=== PATIENT | female | born 1995 | race African-American/Black ===

== ENCOUNTER 2016-10-20 15:59 | Emergency (ER) | payer SELFPAY ==
[~2016-10-20] VITALS: Ht 167.6 cm; Wt 77.1 kg
[2016-10-20 16:45] LABS: BASO # 0.1 x10^3/uL (0.0-0.2); BASO % 0 % (0-3); EOS % 1 % (0-3); HEMATOCRIT 38.7 % (36.0-47.0); HEMOGLOBIN 12.4 g/dL (12.0-15.5); LYMPH # 1.8 x10^3/uL (1.0-4.8); LYMPH % 16 % (24-48); MEAN CORPUSCULAR HEMOGLOBIN 27 pg (25-35); MEAN CORPUSCULAR HGB CONC 32 g/dL (31-37); MEAN CORPUSCULAR VOLUME 83 fL (79-100); MONO % 8 % (0-9); NEUT % 75 % (31-73); PLATELET COUNT 201 x10^3/uL (140-400); RED BLOOD COUNT 4.69 x10^6/uL (3.50-5.40); RED CELL DISTRIBUTION WIDTH 14.5 % (11.5-14.5); WHITE BLOOD COUNT 11.5 x10^3/uL (4.0-11.0)
[2016-10-20] MEDS ORDERED: IV NORMAL SALINE 1000ML BAG 1,000 ML IV ONE (16:45)
[2016-10-20] MEDS ORDERED: DIPHENHYDRAMINE 50 MG/ML VIAL. IVP ONE (16:45)
[2016-10-20] MEDS ORDERED: METOCLOPRAMIDE HCL 10 MG/2 ML VIAL. IV ONE (16:45)
[2016-10-20 16:48] LABS: BILIRUBIN,URINE NEGATIVE (NEG); GLUCOSE,URINE NEGATIVE (NEG); NITRITE,URINE NEGATIVE (NEG); PH,URINE 7.5; PROTEIN,URINE NEGATIVE (NEG-TRACE)
--- NOTE | 2016-10-20 16:49 | PHYS DOC ---
Past Medical History Past Medical History: No Pertinent History Past Surgical History: No Surgical History Alcohol Use: None Drug Use: None Adult General Chief Complaint Chief Complaint: ABDOMINAL PAIN HPI HPI 21-year-old female presenting to the emergency department with pain on the right side. She describes the pain in her right groin that radiates back to the right flank. It is a sharp shooting pain with associated foul-smelling urine. It is moderate in nature intermittent and without hematuria. She has nausea without vomiting. She denies fevers or chills. ROS neg for chest pain, vomiting, fevers chills. Pos for h/a without neck stiffness fevers or meningismus. All other review of systems is negative unless otherwise noted in history of present illness. Review of Systems Review of Systems SEE ABOVE. Current Medications Current Medications Current Medications Medications (Trade) Dose Ordered Sig/Iblly Start Time Stop Time Status Last Admin Dose Admin Diphenhydramine HCl (Benadryl) 50 mg 1X ONCE 10/20/16 16:45 10/20/16 16:46 DC 10/20/16 16:47 50 MG Fentanyl Citrate (Fentanyl 2ml Vial) 25 mcg 1X PRN PRN 10/20/16 17:30 Info (Do NOT chart on this entry -- for MONITORING) 1 each PRN DAILY PRN 10/20/16 17:45 10/22/16 17:44 Iohexol (Omnipaque 300 Mg/ml) 75 ml 1X ONCE 10/20/16 17:45 10/20/16 17:46 DC 10/20/16 18:18 75 ML Metoclopramide HCl (Reglan) 20 mg 1X ONCE 10/20/16 16:45 10/20/16 16:46 DC 10/20/16 16:47 20 MG Sodium Chloride (Iv Sodium Chloride 0.9% 1000ml Bag) 1,000 ml @ 1,000 mls/hr 1X ONCE 10/20/16 16:45 10/20/16 17:44 DC 10/20/16 16:46 1,000 MLS/HR Allergies Allergies Allergies Coded Allergies Type Severity Reaction Last Updated Verified No Known Drug Allergies 06/28/13 No Physical Exam Physical Exam Constitutional: Well developed, well nourished, no acute distress, non-toxic appearance. HENT: Normocephalic, atraumatic, bilateral external ears normal, oropharynx moist, no oral exudates, nose normal. [] Eyes: PERRLA, EOMI, conjunctiva normal, no discharge. Neck: Normal range of motion, no tenderness, supple, no stridor. [] Cardiovascular: Heart rate regular rhythm, no murmur Lungs & Thorax: Bilateral breath sounds clear to auscultation Abdomen: Soft nontender abdomen without rebound tenderness or guarding present. Negative McBurneys point. Negative Moore sign. No ecchymosis present. Skin: Warm, dry, no erythema, no rash. Back: No tenderness, right cva tenderness. no left cva tenderness Extremities: No tenderness, no cyanosis, no clubbing, ROM intact, no edema. Neurologic: Alert and oriented X 3, normal motor function, normal sensory function, no focal deficits noted. Psychologic: Affect normal, judgement normal, mood normal. [] Current Patient Data Vital Signs Vital Signs Date Time Temp Pulse Resp B/P Pulse Ox O2 Delivery O2 Flow Rate FiO2 10/20/16 17:50 99.4 99.4 10/20/16 17:41 72 91/55 100 Room Air 10/20/16 16:17 20 Lab Values Laboratory Tests Test 10/20/16 15:43 10/20/16 16:21 10/20/16 16:33 POC Urine HCG, Qualitative Hcg negative (Negative) Urine Collection Type Unknown Urine Color Yellow Urine Clarity Clear Urine pH 7.5 Urine Specific Richardson <=1.005 Urine Protein Negativemg/dL (NEG-TRACE) Urine Glucose (UA) Negativemg/dL (NEG) Urine Ketones (Stick) Negativemg/dL (NEG) Urine Blood Trace (NEG) Urine Nitrite Negative (NEG) Urine Bilirubin Negative (NEG) Urine Urobilinogen Dipstick 1.0mg/dL (0.2 mg/dL) Urine Leukocyte Esterase Moderate (NEG) Urine RBC 0/HPF (0-2) Urine WBC 20-40/HPF (0-4) Urine Squamous Epithelial Cells Few/LPF Urine Bacteria 0/HPF (0-FEW) White Blood Count 11.5x10^3/uL (4.0-11.0) H Red Blood Count 4.69x10^6/uL (3.50-5.40) Hemoglobin 12.4g/dL (12.0-15.5) Hematocrit 38.7% (36.0-47.0) Mean Corpuscular Volume 83fL (79-100) Mean Corpuscular Hemoglobin 27pg (25-35) Mean Corpuscular Hemoglobin Concent 32g/dL (31-37) Red Cell Distribution Width 14.5% (11.5-14.5) Platelet Count 201x10^3/uL (140-400) Neutrophils (%) (Auto) 75% (31-73) H Lymphocytes (%) (Auto) 16% (24-48) L Monocytes (%) (Auto) 8% (0-9) Eosinophils (%) (Auto) 1% (0-3) Basophils (%) (Auto) 0% (0-3) Neutrophils # (Auto) 8.6x10^3uL (1.8-7.7) H Lymphocytes # (Auto) 1.8x10^3/uL (1.0-4.8) Monocytes # (Auto) 0.9x10^3/uL (0.0-1.1) Eosinophils # (Auto) 0.1x10^3/uL (0.0-0.7) Basophils # (Auto) 0.1x10^3/uL (0.0-0.2) Sodium Level 138mmol/L (136-145) Potassium Level 3.5mmol/L (3.5-5.1) Chloride Level 102mmol/L (98-107) Carbon Dioxide Level 27mmol/L (21-32) Anion Gap 9 (6-14) Blood Urea Nitrogen 6mg/dL (7-20) L Creatinine 0.9mg/dL (0.6-1.0) Estimated GFR (Cockcroft-Gault) 93.9 BUN/Creatinine Ratio 7 (6-20) Glucose Level 88mg/dL (70-99) Calcium Level 8.8mg/dL (8.5-10.1) Total Bilirubin 0.8mg/dL (0.2-1.0) Aspartate Amino Transferase (AST) 14U/L (15-37) L Alanine Aminotransferase (ALT) 15U/L (14-59) Alkaline Phosphatase 91U/L (46-116) Total Protein 7.4g/dL (6.4-8.2) Albumin 3.4g/dL (3.4-5.0) Albumin/Globulin Ratio 0.9 (1.0-1.7) L Lipase 83U/L (73-393) Laboratory Tests 10/20/16 16:33 Laboratory Tests 10/20/16 16:33 EKG EKG [] Radiology/Procedures Radiology/Procedures [] Course & Med Decision Making Course & Med Decision Making Pertinent Labs and Imaging studies reviewed. (See chart for details) 21 y/o F with R sided flank pain with nausea and headache. vital signs afebrile , mild tachycardia present. Pertinent physical exam findings nontender appendix. Mild CVA tenderness present. access obtained. Blood work obtained. Urinalysis obtained. IV fluids Reglan and Benadryl administered for nausea and pain control. On reevaluation, the patient's symptomatology had improved. She was feeling better. test negative. CT of the abdomen pelvis not suggestive of appendicitis. The patient's urinalysis mildly suggestive of urinary tract infection. Bactrim provided. The patient was in discharged home to follow up with PCP over the next 2-3 days. [id number] discharge instructions and return precautions given. Patient comfortable with plan. Dragon Disclaimer Dragon Disclaimer This electronic medical record was generated, in whole or in part, using a voice recognition dictation system. Departure Departure Impression: Primary Impression: Right flank pain Additional Impression: Headache Disposition: 01 HOME, SELF-CARE Condition: STABLE Referrals: NO PCP (PCP) EDGAR ALMENDAREZ MD Patient Instructions: Flank Pain Additional Instructions: Thank you for allowing us to participate in your care today. Followup with your primary care physician in 3 days if your symptoms do not improve. If you do not have a primary care provider you can ask for a list of our primary care providers. Return to the emergency department you have any new or concerning findings. This should be evaluated by the primary care physician and any necessary consulting services for continued management within a few days after discharge. Return to emergency room if you have any new or concerning symptoms including but not limited to fever, chills, nausea, vomiting, intractable pain, any new rashes, chest pain, shortness of air, uncontrolled bleeding, difficulty breathing, and/or vision loss. You may have been prescribed medication that can change in your level of thinking and ability to operate machinery. These medications include hydrocodone and Ativan. Also, Benadryl has been known to do this as well. Be sure to check with your pharmacist and ask if the medications you've prescribed can affect your level of consciousness. I recommend not operating heavy machinery or driving while on medication such as these. Scripts Sulfamethoxazole/Trimethoprim (Bactrim Ds Tablet)1 Each Tablet1 Tab PO BID #14 TAB Prov:DEX HIGH MD 10/20/16 Problem Qualifiers Additional Impression: Headache Headache type: tension-type DEX HIGH MD Oct 20, 2016 16:49
[2016-10-20 16:57] LABS: CALCIUM 8.8 mg/dL (8.5-10.1); CREATININE 0.9 mg/dL (0.6-1.0); GFR 93.9; POTASSIUM 3.5 mmol/L (3.5-5.1)
[2016-10-20 17:03] LABS: ALBUMIN 3.4 g/dL (3.4-5.0); ALBUMIN/GLOBULIN RATIO 0.9 (1.0-1.7); TOTAL BILIRUBIN 0.8 mg/dL (0.2-1.0); TOTAL PROTEIN 7.4 g/dL (6.4-8.2)
[2016-10-20 17:03] LABS: BACTERIA,URINE 0 /HPF (0-FEW); RBC,URINE 0 /HPF (0-2); SQUAMOUS EPITHELIAL CELL,UR FEW /LPF; WBC,URINE 20-40 /HPF (0-4)
[2016-10-20] MEDS ORDERED: FENTANYL PF 100 MCG/2 ML VIAL. IV PRN (17:30)
[2016-10-20] MEDS ORDERED: CONTRAST GIVEN MC PRN (17:45)
[2016-10-20] MEDS ORDERED: IOHEXOL 300 MG/ML 75 ML VIAL IV ONE (17:45)
--- NOTE | 2016-10-20 18:39 | RAD ---
INDICATION: Nausea and right lower quadrant pain today. COMPARISON: None TECHNIQUE: Axial CT images obtained through the abdomen and pelvis following the intravenous administration of 75 cc of Omni 300. Coronal and sagittal reformats are provided. One or more of the following individualized dose reduction techniques were utilized for this examination: 1. Automated exposure control; 2. Adjustment of the mA and/or kV according to patient size; 3. Use of iterative reconstruction technique. FINDINGS: Visualized lung bases appear clear. The liver, spleen, gallbladder, pancreas, adrenal glands and bilateral kidneys demonstrate no focal abnormality. A trace amount of soft tissue stranding is present inferior to the right kidney. No nephrolithiasis or hydronephrosis is present. No adjacent bowel wall thickening is present. The GI tract demonstrates no dilated bowel loops to suggest obstruction. The appendix is not definitively seen within the right lower quadrant, however no adjacent soft tissue stranding is present. The urinary bladder demonstrates no focal abnormality. Uterus and bilateral adnexa demonstrate no focal abnormality. Trace, likely physiologic fluid is present in the pelvis. No intra-abdominal or pelvic scratch free air or significant lymphadenopathy is seen. The aorta is normal in caliber. Visualized osseous structures and overlying soft tissues demonstrate no acute or suspicious finding. IMPRESSION: Trace soft tissue stranding is present along the inferior aspect of the right kidney, etiology of which is not known. Right kidney demonstrates no focal abnormality. While the appendix is not definitively seen in the right lower quadrant, no adjacent inflammatory changes are seen to suggest acute appendicitis. Electronically signed by: Renee Núñez (Oct 20, 2016 18:38:23)
[2016-10-20] MEDS ORDERED: SULF1TAB24 PO (18:45)
[2016-10-20 18:53] VITALS: BP 106/53
== END 2016-10-20 18:55 | disposition home or self-care (01) ==
LOC: ER 15:59
DX: R10.9 Unspecified abdominal pain (principal); G44.209 Tension-type headache, unspecified, not intractable
CPT/HCPCS: 36415; 74177; 80053; 81001; 83690; 84703; 85027; 87086; 96361; 96374; 96375; 99285; J1200; J2765; J7030; Q9967; 81025; 87186